=== PATIENT | female | born 1985 | race Caucasian/White ===

== ENCOUNTER 2020-06-14 08:02 | Inpatient (IN) ==
[2020-06-14] MEDS ORDERED: Buffered Lidocaine 1% SYRIN 1 ml INTRADERM ONE (09:41)
[2020-06-14] MEDS ORDERED: Lactated Ringers 1000 ml BAG 1,000 ML IV ONE ×2 (09:41→18:23)
[2020-06-14 10:05] LABS: Urine Appearance Clear; Urine Bilirubin Negative (Negative); Urine Blood Negative (Negative); Urine Color Straw; Urine Glucose Negative (Negative); Urine Ketones Negative (Negative); Urine Nitrite Negative (Negative); Urine Protein Negative (Negative); Urine Specific Gravity 1.005 (1.010-1.030); Urine Urobilinogen Negative (Negative)
[2020-06-14 10:16] LABS: Urine Bacteria 1+ (Absent); Urine Red Blood Cell Absent (Absent); Urine Squamous Epithelial Cell Present (Absent); Urine White Blood Cell Trace(0-5/hpf) (Absent)
[2020-06-14 10:18] LABS: Urine Benzodiazepine Screen None Detected (None Detect); Urine Cannabinoids Screen None Detected (None Detect); Urine Opiates Screen None Detected (None Detect)
[2020-06-14 10:40] LABS: ABS Lymphocytes 1.6 10^3/ul (1.0-4.8); ABS Monocytes 0.5 10^3/ul (0-0.8); ABS Neutrophils 7.5 10^3/ul (1.5-7.7); Eosinophil % 0.1 %; Hematocrit 31 % (35-47); Hemoglobin 10.7 g/dL (12.0-16.0); Mean Corpuscular HGB Conc 35 g/dL (31-36); Mean Corpuscular Hemoglobin 29 pg (27-31); Mean Corpuscular Volume 84 fL (80-97); Mean Platelet Volume 8.2 fL (7.4-10.4); Platelet Count 287 10^3/uL (150-450); Red Blood Count 3.66 10^6 /uL (3.70-4.87); Red Cell Distribution Width 14 % (10-15); White Blood Count 9.6 10^3/uL (3.5-10.8)
[2020-06-14 10:56] LABS: Albumin 3.5 g/dL (3.2-5.2); Albumin/Globulin Ratio 1.1 (1-3); BUN/Creatinine Ratio 18.8 (8-20); Calcium 9.2 mg/dL (8.6-10.3); Globulin 3.2 g/dL (2-4); Potassium 4.1 mmol/L (3.5-5.0); Total Bilirubin 0.3 mg/dL (0.2-1.0); Total Protein 6.7 g/dL (6.4-8.9); Uric Acid 7.2 mg/dL (2.3-6.6)
[2020-06-14] MEDS ORDERED: Oxytocin in LR 20 UNITS/1,000 ML BAG IVPB SCH (11:00)
[2020-06-14] MEDS: Lactated Ringers 1000 ml BAG 1,000 ML IV SCH ×2 (16:58→20:44)
[2020-06-14] MEDS ORDERED: OBEPIDURAL 250 ML EPIDURAL ONE (17:47)
[2020-06-14] MEDS ORDERED: Bupivacaine 0.25% SDV PF 10 ML VIAL INJ ONE (17:49)
[2020-06-14] MEDS ORDERED: EPHEDrine (Pressors) 50 MG/ML VIAL IV PUSH PRN ×2 (18:23)
[2020-06-14] MEDS ORDERED: Phenylephrine 40 mcg/mL 10mL (400mcg) SYRINGE IV PUSH PRN ×2 (18:23)
[2020-06-14] MEDS ORDERED: Sodium Citrate/Citric Acid LIQ 15 ML UDC PO PRN (18:23)
[2020-06-14] MEDS ORDERED: Lactated Ringers 1000 ml BAG 1,000 ML IV SCH (19:00)
[2020-06-14] MEDS ORDERED: OBEPIDURAL 250 ML EPIDURAL SCH (19:00)
[2020-06-15] MEDS ORDERED: Glycerin ADULT 2.4 gm SUPP PR PRN (00:35)
[2020-06-15] MEDS ORDERED: Dibucaine 1% OINT 28.35 GM TUBE PR PRN (00:35)
[2020-06-15] MEDS ORDERED: Witch Hazel PAD JAR TOPICAL PRN (00:35)
[2020-06-15] MEDS ORDERED: Measles, Mumps,Rubella VACC 0.5 ML/VIAL SUBCUT ONE (00:35)
[2020-06-15] MEDS ORDERED: Oxytocin in LR 20 UNITS/1,000 ML BAG IVPB SCH (01:00)
[2020-06-15] MEDS ORDERED: Lactated Ringers 1000 ml BAG 1,000 ML IV SCH (01:00)
[2020-06-15] MEDS ORDERED: Lidocaine 1% VIAL 10 MG/ML VIAL ONE (01:53)
[2020-06-16 07:20] LABS: ABS Eosinophils 0.1 10^3/ul (0-0.6); ABS Lymphocytes 2.4 10^3/ul (1.0-4.8); ABS Monocytes 0.5 10^3/ul (0-0.8); ABS Neutrophils 8.6 10^3/ul (1.5-7.7); Eosinophil % 0.8 %; Hematocrit 28 % (35-47); Hemoglobin 9.4 g/dL (12.0-16.0); Lymphocyte % 20.9 %; Mean Corpuscular HGB Conc 34 g/dL (31-36); Mean Corpuscular Hemoglobin 29 pg (27-31); Mean Corpuscular Volume 85 fL (80-97); Mean Platelet Volume 7.8 fL (7.4-10.4); Platelet Count 253 10^3/uL (150-450); Red Blood Count 3.32 10^6 /uL (3.70-4.87); Red Cell Distribution Width 15 % (10-15); White Blood Count 11.7 10^3/uL (3.5-10.8)
[2020-06-16 12:32] VITALS: BP 158/91
== END 2020-06-16 14:28 | disposition home or self-care (01) | DRG 560 ==
LOC: MCHOBOUT 08:02 → MCHOB 09:53
PROVIDERS: ADMIT Midwife; ATTEND Midwife

== ENCOUNTER 2020-06-23 16:32 | Observation (INO) ==
[2020-06-23] MEDS ORDERED: Magnesium Sulf 4 GM/100 ML IV 4,000 MG/100 ML BAG IVPB ONE (18:48)
[2020-06-23] MEDS ORDERED: Labetalol IV 5 MG/ML 20 ml VIAL IV PUSH ONE (18:50)
[2020-06-23 19:05] LABS: ABS Basophils 0.1 10^3/ul (0-0.2); ABS Lymphocytes 1.5 10^3/ul (1.0-4.8); ABS Monocytes 0.4 10^3/ul (0-0.8); ABS Neutrophils 7.6 10^3/ul (1.5-7.7); Eosinophil % 0.3 %; Hematocrit 35 % (35-47); Hemoglobin 11.5 g/dL (12.0-16.0); Mean Corpuscular HGB Conc 33 g/dL (31-36); Mean Corpuscular Hemoglobin 29 pg (27-31); Mean Corpuscular Volume 86 fL (80-97); Platelet Count 442 10^3/uL (150-450); Red Blood Count 4.04 10^6 /uL (3.70-4.87); Red Cell Distribution Width 15 % (10-15); White Blood Count 9.6 10^3/uL (3.5-10.8)
[2020-06-23 19:25] LABS: Albumin 3.9 g/dL (3.2-5.2); Albumin/Globulin Ratio 1.2 (1-3); Calcium 8.7 mg/dL (8.6-10.3); EGFR African American 110.9 (>60); EGFR Non-African American 91.7 (>60); Globulin 3.2 g/dL (2-4); Total Bilirubin 0.3 mg/dL (0.2-1.0); Total Protein 7.1 g/dL (6.4-8.9)
[2020-06-23 19:28] LABS: Urine Appearance Clear; Urine Bilirubin Negative (Negative); Urine Blood 2+ (Negative); Urine Color Colorless; Urine Glucose Negative (Negative); Urine Ketones Negative (Negative); Urine Nitrite Negative (Negative); Urine Protein Negative (Negative); Urine Specific Gravity 1.003 (1.010-1.030); Urine Urobilinogen Negative (Negative)
[2020-06-23 19:57] LABS: Urine Bacteria Absent (Absent); Urine Red Blood Cell Trace(0-2/hpf) (Absent); Urine Squamous Epithelial Cell Present (Absent); Urine White Blood Cell Trace(0-5/hpf) (Absent)
[2020-06-23] MEDS ORDERED: Labetalol IV 5 MG/ML 20 ml VIAL IV PUSH PRN (20:41)
[2020-06-23] MEDS: Magnesium Sulfate OB PREMIX 40 GM/1,000 ML BAG IVPB SCH (21:10)
[2020-06-23] MEDS ORDERED: Labetalol IV 5 MG/ML 20 ml VIAL IV ONE (23:29)
[2020-06-24] MEDS: Magnesium Sulfate OB PREMIX 40 GM/1,000 ML BAG IVPB SCH (17:00)
[2020-06-25 10:24] VITALS: BP 155/90
== END 2020-06-25 11:15 | disposition home or self-care (01) ==
LOC: ED 16:32 → MCHOB 16:32
PROVIDERS: ADMIT Obstetrics & Gynecology; ATTEND Obstetrics & Gynecology

== ENCOUNTER 2023-05-02 06:35 | Observation (INO) ==
[~2023-05-02 06:35] MED LIST: Buffered Lidocaine 1% SYRIN 1 ml INTRADERM ONE
[2023-05-02] MEDS ORDERED: oxyCODONE SR 10 mg TAB PO PRN (06:51)
[2023-05-02] MEDS ORDERED: Scopolamine 1 mg/72hr PATCH TRANSDERM PRN (06:51)
[2023-05-02] MEDS ORDERED: Ondansetron 4 mg VIAL 2 MG/ML 2 ml VIAL IV PRN ×3 (06:52→17:41)
[2023-05-02] MEDS ORDERED: Clindamycin 900 MG/50 **NS BAG 900 MG/50 ML BAG IV ONE (07:00)
[2023-05-02] MEDS ORDERED: oxyCODONE SR 10 mg TAB ONE (07:25)
[2023-05-02] MEDS ORDERED: Scopolamine 1 mg/72hr PATCH ONE (07:25)
[2023-05-02] MEDS ORDERED: Ondansetron 4 mg VIAL 2 MG/ML 2 ml VIAL ONE ×2 (07:25→09:21)
[2023-05-02 07:38] LABS: Hematocrit 37.6 % (35-45); Hemoglobin 13.1 g/dL (11.5-14.3); Mean Corpuscular Hemoglobin 30.9 pg (27-33); Mean Corpuscular Hgb Conc 34.7 g/dL (31-36); Mean Corpuscular Volume 88.9 fL (80-97); Mean Platelet Volume 7.4 fL (7.5-11.2); Platelet Count 382 10^3/uL (150-450); Red Blood Count 4.23 10^6/uL (3.63-4.92); Red Cell Distribution Width 12.6 % (12-17)
[2023-05-02] MEDS ORDERED: fentaNYL 100 mcg/2 ml 50 MCG/ML VIAL ONE ×2 (07:52→10:19)
[2023-05-02] MEDS ORDERED: Midazolam 5 mg/5 ml VIAL 1 mg/ml 5 ml VIAL (5 mg) ONE (07:52)
[2023-05-02 07:53] LABS: Activated Partial Thrombo Time 32.7 seconds (26.0-38.0); INR 0.98 (0.83-1.13)
[2023-05-02] MEDS ORDERED: Heparin 2 UNITS/ML IVPREMIX 3,000 UNIT/1,500 ML BAG IV ONE (07:53)
[2023-05-02] MEDS ORDERED: nitroGLYCERIN DRIP 0 MCG/0 ML BTL ONE (07:53)
[2023-05-02] MEDS ORDERED: Iohexol 350 (CONTRAST) 100 ML PAK IV ONE (07:53)
[2023-05-02] MEDS ORDERED: Lidocaine 1% VIAL 10 MG/ML 30 ML VIAL ONE (07:54)
[2023-05-02] MEDS ORDERED: Gelfoam Sponge SIZE 100 SPONGE ONE (08:02)
[2023-05-02 08:11] LABS: Anion Gap 12 mmol/L (2-16); Blood Urea Nitrogen 15 mg/dL (6-24); CO2 Carbon Dioxide 24 mmol/L (22-32); Calcium 9.4 mg/dL (8.6-10.3); Chloride 100 mmol/L (101-111); Creatinine, Serum 0.78 mg/dL (0.51-0.95); Glucose 103 mg/dL (70-100); Sodium 136 mmol/L (135-145)
[2023-05-02 08:17] LABS: HCG Pregnancy < 0.60 mIU/mL
[2023-05-02] MEDS ORDERED: Rocuronium 50 mg VIAL 10 mg/ml 5 ml VIAL (50 mg) ONE ×3 (09:19→15:02)
[2023-05-02] MEDS ORDERED: Propofol 10 MG/ML 20 ML BTL ONE (09:20)
[2023-05-02] MEDS ORDERED: Dexamethasone IV 4 MG/ML VIAL 1 ml VIAL ONE (09:20)
[2023-05-02] MEDS: Lactated Ringers 1000 ml BAG 1,000 ML IV SCH ×2 (10:17→18:02)
[2023-05-02] MEDS ORDERED: HYDROmorphone 1 MG/1 ML SYRINGE IV SLOW PU PRN (10:17)
[2023-05-02] MEDS ORDERED: fentaNYL 100 mcg/2 ml 50 MCG/ML VIAL IV PRN ×2 (10:17→11:09)
[2023-05-02] MEDS ORDERED: fentaNYL 250 mcg/5 ml 50 MCG/ML 5 ml VIAL (250 MCG) ONE (10:31)
[2023-05-02] MEDS ORDERED: Midazolam 2 mg/2 ml VIAL 1 mg/ml 2 ml VIAL (2 mg) ONE (10:32)
[2023-05-02] MEDS ORDERED: Naloxone 0.4 mg VIAL 0.4 mg/ml 1 ml VIAL IV PUSH PRN (10:33)
[2023-05-02] MEDS ORDERED: Midazolam 10 mg/10 ml VIAL 1 mg/ml 10 ml VIAL (10 mg) IV SLOW PU ONE (10:33)
[2023-05-02] MEDS ORDERED: Flumazenil 0.5 mg/5 ml 0.1 MG/ML 5 ml VIAL IV PRN (10:33)
[2023-05-02] MEDS ORDERED: fentaNYL 100 mcg/2 ml 50 MCG/ML VIAL IV SLOW PU ONE (10:33)
[2023-05-02] MEDS ORDERED: Bupivacaine 0.5% 50 ML MDV VIAL ONE (10:59)
[2023-05-02] MEDS ORDERED: INDIGOTINDISULFONATE SODIUM ONE (10:59)
[2023-05-02] MEDS ORDERED: Naloxone 0.4 mg VIAL 0.4 mg/ml 1 ml VIAL IV PRN (11:09)
[2023-05-02] MEDS ORDERED: HYDROmorphone 1 MG/1 ML SYRINGE IV PRN (11:09)
[2023-05-02] MEDS ORDERED: HYDROmorphone 1 MG/1 ML SYRINGE ONE (11:11)
[2023-05-02] MEDS ORDERED: Metoclopramide 5 MG/ML VIAL (10 mg) ONE (12:12)
[2023-05-02] MEDS ORDERED: ceFOXitin 2 GM PREMIX 50 ML IVPB ONE (13:00)
[2023-05-02] MEDS ORDERED: HYDROmorphone 0.5 MG/0.5 ML SYRINGE ONE (13:05)
[2023-05-02] MEDS ORDERED: Dexmedetomidine 200 mcg/2 ml 2 ml VIAL (200 mcg) ONE (14:23)
[2023-05-02] MEDS ORDERED: oxyCODONE/Acetamin 5/325 mg TAB PO PRN ×2 (17:41)
[2023-05-02] MEDS ORDERED: Lactated Ringers 1000 ml BAG 1,000 ML IV SCH (18:00)
[2023-05-03 07:05] LABS: Hemoglobin 11.2 g/dL (11.5-14.3)
[2023-05-03 08:54] LABS: Calcium 7.9 mg/dL (8.6-10.3); Creatinine, Serum 0.66 mg/dL (0.51-0.95); Potassium 3.8 mmol/L (3.5-5.0); eGFR CKD-EPI 114.4 (>60)
[2023-05-03 10:08] VITALS: BP 126/84
== END 2023-05-03 12:30 | disposition home or self-care (01) ==
LOC: CHICATH 06:35 → SSU 06:35
PROVIDERS: ADMIT Radiology Diagnostic Radiology; ATTEND Obstetrics & Gynecology
PROC: ANG.UFE (2023-05-02 08:15)